=== PATIENT | female | born 1960 | race Caucasian/White ===

== ENCOUNTER 2017-12-08 21:28 | Emergency (ER) ==
[2017-12-08] MEDS ORDERED: CEFZIL PO STA (21:50)
[2017-12-08 21:51] VITALS: BP 149/90; TEMP 97.7; BMI 31.8
[2017-12-08] MEDS ORDERED: CEFTIN PO STA (21:51)
--- NOTE | 2017-12-08 21:54 | ED.PDOC ---
General ED Provider: Dr. FREDRICK MANCILLA-ER Chief Complaint: Non-specific Complaint Stated Complaint: i blew my nose and my left ear starting bleeding Time Seen by Physician: 21:35 Mode of Arrival: Walk-In Information Source: Patient Exam Limitations: No limitations Nursing and Triage Documentation Reviewed and Agree: Yes Reviewed sepsis parameters & appropriate labs ordered?: Yes System Inflammatory Response Syndrome: Not Applicable Sepsis Protocol: For patient's 13 years and over: Temp is 96.8 and below OR 101 and greater Pulse >90 BPM Resp >20/minute Acutely Altered Mental Status Are patient's symptoms suggestive of a new infection, such as: -Pneumonia -Skin, Soft Tissue -Endocarditis -UTI -Bone, Joint Infection -Implantable Device -Acute Abdominal Infection -Wound Infection -Meningitis -Blood Stream Catheter Infection -Unknown EENT Complaint Exam - Ear Complaint/Exam Onset/Duration: tonight Symptoms Are: Still present Timing: Constant Initial Severity: Mild Current Severity: Mild Character: Reports: Dull pain Aggravating: Reports: None Alleviating: Reports: None Associated Signs and Symptoms: Reports: Hearing loss, Bleeding. Denies: Ear trauma, Ear swelling, Discharge, Fever, Sore throat, Headache, URI symptoms, Foreign body sensation, Rash, Pain to external ear, Pain to external face Ear Surgical History: None Vesicles to External Pinna: No Vesicles to Tragus: No Material in Canal: Present: Blood Tympanic Membrane: Perforation Differential Diagnoses: Barotrauma Review of Systems - Review Of Systems Constitutional: Reports: No symptoms Eyes: Reports: No symptoms Ears, Nose, Mouth, Throat: Reports: Ear pain, Ear discharge Respiratory: Reports: No symptoms Cardiac: Reports: No symptoms GI: Reports: No symptoms : Reports: No symptoms Musculoskeletal: Reports: No symptoms Skin: Reports: No symptoms Neurological: Reports: No symptoms Endocrine: Reports: No symptoms Hematologic/Lymphatic: Reports: No symptoms All Other Systems: Reviewed and Negative Past Medical History - Past Medical History Previously Healthy: Yes Endocrine: Reports: Unknown Cardiovascular: Reports: Unknown Respiratory: Reports: Unknown Hematological: Reports: Unknown Gastrointestinal: Reports: Unknown Genitourinary: Reports: Unknown Neuro/Psych: Reports: Unknown Musculoskeletal: Reports: Unknown Cancer: Reports: Unknown Last Menstrual Period: 5 yrs ago - Surgical History General Surgical History: Reports: Unknown - Family History Family History: Reports: Unknown - Social History Smoking Status: Current every day smoker Hx Substance Use: Yes (marijuana) Alcohol Screening: Occasionally - Immunizations Tetanus Shot up to Date: Yes (09/2015) Physical Exam - Physical Exam Appearance: Well-appearing, No pain distress, Well-nourished Eyes: BRE, EOMI, Conjunctiva clear ENT: Ears normal, Nose normal Neck: Supple Respiratory: Airway patent, Breath sounds clear, Breath sounds equal, Respirations nonlabored Cardiovascular: RRR, Pulses normal, No rub, No murmur GI/: Soft, Nontender, No masses, Bowel sounds normal, No Organomegaly Musculoskeletal: Normal strength, ROM intact, No edema, No calf tenderness Skin: Warm, Dry, Normal color Neurological: Sensation intact, Motor intact, Reflexes intact, Cranial nerves intact, Alert, Oriented Psychiatric: Affect appropriate, Mood appropriate Critical Care Note - Critical Care Note Total Time (mins): 0 Course - Course Orders, Labs, Meds: Orders Category Date Time Status Cefprozil [Cefzil] MEDS 12/08/17 21:50 Stop Req 250 mg PO ONCE STA Cefuroxime Axetil [Ceftin] MEDS 12/08/17 21:51 Stat 250 mg PO ONCE STA Medications Generic Name Dose Route Start Last Admin Trade Name Freq PRN Reason Stop Dose Admin Cefuroxime Axetil 250 mg 12/08/17 21:51 Ceftin PO 12/08/17 21:52 ONCE STA Vital Signs: Temp Pulse Resp BP Pulse Ox 12/08/17 21:31 97.7 F 67 20 149/90 H 96 Departure - Departure Time of Disposition: 21:54 Disposition: HOME SELF-CARE Discharge Problem: Perforation of tympanic membrane in adult Instructions: Ruptured Eardrum (ED) Condition: Good Pt referred to PMD for follow-up: Yes IPMP verified?: No Additional Instructions: dry ear precautions---zpack--f/u with pmd in 7 days to recheck ear Allergies/Adverse Reactions: Allergies Unobtainable Allergy (Unverified 12/08/17 21:42) had trouble breathing with an antibiotic in 2013 that she took for a dog bite. does NOT remember the name of medication. Home Medications: Ambulatory Orders Ephedrine Sulfate/Guaifenesin [Bronkaid Dual Action Caplet] 1 tab PO BID Disposition Discussed With: Patient, Family
== END 2017-12-08 22:07 | disposition home or self-care (01) ==
LOC: ED 21:28
DX: H72.92 Unspecified perforation of tympanic membrane, left ear (principal); F17.210 Nicotine dependence, cigarettes, uncomplicated
CPT/HCPCS: 99282